=== PATIENT | female | born 1970 | race Caucasian/White ===

== ENCOUNTER 2018-04-16 10:50 | Emergency (ER) | END 2018-04-16 14:41 | disposition home or self-care (01) ==

== ENCOUNTER 2019-02-12 16:21 | Emergency (ER) | payer OTHER ==
[~2019-02-12] VITALS: Ht 160 cm; Wt 78.3 kg
[~2019-02-12 16:21] MED LIST: CIPR500T4 PO; ONDA8TAB14 PO; TRAM50TA2 PO
[2019-02-12 16:26] VITALS: Ht 160 cm; Wt 78.3 kg
[2019-02-12] MEDS ORDERED: SOD CHLORIDE 0.9% 1,000 ML IV STA (17:01)
[2019-02-12] MEDS ORDERED: KETOROLAC 30 MG INJ IV STA (17:01)
[2019-02-12] MEDS ORDERED: ONDANSETRON 4 MG INJ IV STA (17:01)
[2019-02-12] MEDS ORDERED: SITA100T11 PO (18:08)
[2019-02-12] MEDS ORDERED: ATOR40TA68 PO (18:08)
[2019-02-12] MEDS ORDERED: METF100010 PO (18:08)
[2019-02-12] MEDS ORDERED: TAMS-14 PO (22:17)
[2019-02-12] MEDS ORDERED: IBUP-1542 PO (22:17)
[2019-02-12] MEDS ORDERED: ONDA4TAB14 PO (22:17)
[2019-02-12] MEDS ORDERED: HYDR-4011 PO (22:17)
--- NOTE | 2019-02-12 22:27 | ERD ---
ER Documentation Chief Complaint Chief Complaint ABD PAIN X2 DAYS, NAUSEA, VOMITING, FEVER AT HOME HPI Patient is a 49-year-old female with diabetes and kidney stone who presents with abdominal pain. The patient has right-sided abdominal pain which radiates to her right flank. She had vomiting. She had mucus in her bowel movement. She had subjective fever today. The patient has had these symptoms for the past couple days. She went to her primary doctor who sent her to the emergency department. Upon review of old medical records the patient one previous visit to the ER in 2018. ROS All systems reviewed and are negative except as per history of present illness. Medications Home Meds Active Scripts Ondansetron (Ondansetron Odt) 4 Mg Tab.rapdis, 4 MG PO Q6H PRN for NAUSEA AND/OR VOMITING, #10 TAB Prov:JULIA PACHECO MD 02/12/19 Tamsulosin Hcl* (Flomax*) 0.4 Mg Cap.er.24h, 0.4 MG PO QPM, #30 CAP Prov:JULIA PACHECO MD 02/12/19 Hydrocodone/Acetaminophen ([place] 5-325 Tablet) 1 Each Tablet, 1 TAB PO Q6H PRN for PAIN, #7 TAB Prov:JULIA PACHECO MD 02/12/19 Ibuprofen* (Motrin*) 600 Mg Tab, 600 MG PO Q6H PRN for PAIN AND OR ELEVATED TEMP, #30 TAB Prov:JULIA PACHECO MD 02/12/19 Reported Medications Metformin Hcl* (Metformin Hcl*) 1,000 Mg Tablet, 1000 MG PO WITH BREAKFAST DINNE , #60 TAB 02/12/19 Sitagliptin* (Januvia*) 100 Mg Tablet, 100 MG PO DAILY, #30 TAB 02/12/19 Atorvastatin* (Atorvastatin*) 40 Mg Tablet, 40 MG PO QHS, #30 TAB 02/12/19 Discontinued Scripts Ondansetron (Ondansetron Odt) 8 Mg Tab.rapdis, 8 MG PO Q6H PRN for NAUSEA AND/OR VOMITING, #6 TAB Prov:BAYLEE VELIZ MD 04/16/18 Ciprofloxacin Hcl* (Ciprofloxacin Hcl*) 500 Mg Tablet, 500 MG PO BID for 10 Days, TAB Prov:BAYLEE VELIZ MD 04/16/18 Tramadol HCl (Tramadol HCl) 50 Mg Tablet, 50 MG PO Q4 PRN for PAIN, #20 TAB Prov:BAYLEE VELIZ MD 04/16/18 Allergies Allergies: Coded Allergies: No Known Allergy (Unverified , 02/12/19) PMhx/Soc Positive for diabetes and kidney stone Medical and Surgical Hx: pt denies Surgical Hx History of Surgery: No Anesthesia Reaction: No Hx Neurological Disorder: No Hx Respiratory Disorders: No Hx Cardiac Disorders: No Hx Psychiatric Problems: No Hx Miscellaneous Medical Probl: No Hx Alcohol Use: No Hx Substance Use: No Hx Tobacco Use: No Smoking Status: Never smoker FmHx Family History: diabetes Physical Exam Vitals Vital Signs Date Temp Pulse Resp B/P (MAP) Pulse Ox O2 O2 Flow FiO2 Time Delivery Rate 02/12/19 79 16 118/81 99 Room Air 22:10 (93) 02/12/19 82 16 115/70 99 Room Air 19:50 (85) 02/12/19 98.8 105 17 134/65 98 16:26 (88) Physical Exam Const: Moderate distress secondary to pain Head: Atraumatic Eyes: Normal Conjunctiva ENT: Normal External Ears, Nose and Mouth. Neck: Full range of motion. No meningismus. Resp: Clear to auscultation bilaterally Cardio: Regular rate and rhythm, no murmurs Abd: Soft, right-sided abdominal pain with palpation without rebound or guarding Skin: No petechiae or rashes Back: No midline or flank tenderness Ext: No cyanosis, or edema Neur: Awake and alert Psych: Normal Mood and Affect Result Diagram: 02/12/19 1728 02/12/19 1728 Results 24 hrs Laboratory Tests Test 02/12/19 17:28 02/12/19 19:56 White Blood Count 8.4 10^3/ul Red Blood Count 4.67 10^6/ul Hemoglobin 13.0 g/dl Hematocrit 40.7 % Mean Corpuscular Volume 87.2 fl Mean Corpuscular Hemoglobin 27.8 pg Mean Corpuscular Hemoglobin Concent 31.9 g/dl Red Cell Distribution Width 14.7 % Platelet Count 250 10^3/UL Mean Platelet Volume 9.5 fl Immature Granulocytes % 0.200 % Neutrophils % 71.4 % Lymphocytes % 20.7 % Monocytes % 6.9 % Eosinophils % 0.7 % Basophils % 0.1 % Nucleated Red Blood Cells % 0.0 /100WBC Immature Granulocytes # 0.020 10^3/ul Neutrophils # 6.0 10^3/ul Lymphocytes # 1.7 10^3/ul Monocytes # 0.6 10^3/ul Eosinophils # 0.1 10^3/ul Basophils # 0.0 10^3/ul Nucleated Red Blood Cells # 0.0 10^3/ul Urine Color YELLOW Urine Clarity SLIGHTLY CLOUDY Urine pH 5.0 Urine Specific [place] 1.011 Urine Ketones NEGATIVE mg/dL Urine Nitrite NEGATIVE mg/dL Urine Bilirubin NEGATIVE mg/dL Urine Urobilinogen NEGATIVE mg/dL Urine Leukocyte Esterase 1+ Hollie/ul Urine Microscopic RBC 37 /HPF Urine Microscopic WBC 6 /HPF Urine Squamous Epithelial Cells FEW /HPF Urine Bacteria FEW /HPF Urine Hemoglobin 3+ mg/dL Urine Glucose NEGATIVE mg/dL Urine Total Protein NEGATIVE mg/dl Sodium Level 143 mmol/L Potassium Level 3.8 mmol/L Chloride Level 107 mmol/L Carbon Dioxide Level 24 mmol/L Anion Gap 12 Blood Urea Nitrogen 17 mg/dl Creatinine 0.71 mg/dl Est Glomerular Filtrat Rate mL/min > 60 mL/min Glucose Level 98 mg/dl Calcium Level 9.7 mg/dl Total Bilirubin 0.5 mg/dl Direct Bilirubin 0.00 mg/dl Indirect Bilirubin 0.5 mg/dl Aspartate Amino Transf (AST/SGOT) 26 IU/L Alanine Aminotransferase (ALT/SGPT) 41 IU/L Alkaline Phosphatase 74 IU/L Total Protein 8.1 g/dl Albumin 4.5 g/dl Globulin 3.60 g/dl Albumin/Globulin Ratio 1.25 Lipase 139 U/L POC Beta HCG, Qualitative NEGATIVE Current Medications Medications Dose Sig/Bryan Start Time Status Last (Trade) Ordered Route PRN Stop Time Admin Dose Reason Admin Sodium 1,000 ml @ Q1H STAT 02/12/19 DC 02/12/19 Chloride 1,000 mls/hr IV 17:01 17:49 02/12/19 18:00 Ondansetron 4 mg ONCE STAT 02/12/19 DC 02/12/19 HCl (Zofran IV 17:01 17:48 Inj) 02/12/19 17:03 Ketorolac 30 mg ONCE STAT 02/12/19 DC 02/12/19 Tromethamine IV 17:01 17:48 (Toradol) 02/12/19 17:03 Procedures/MDM CT abdomen pelvis shows 4 mm kidney stone per radiology. Patient is a 49-year-old female presents with right-sided abdominal pain and flank pain. She was found to have a 4 mm kidney stone but there are no signs of infection at this time. She is otherwise well-appearing and feels better. She will be discharged will need to follow-up with Dr. Hernandez from urology or the urologist of her choice for follow-up within 24 to 48 hours. She can return for any worsening symptoms. I doubt appendicitis, cholecystitis, pancreatitis, or bowel obstruction. Departure Diagnosis: Primary Impression: Kidney stone Additional Impression: Abdominal pain Abdominal location: unspecified location Qualified Codes: R10.9 - Unspecified abdominal pain Condition: Fair Patient Instructions: Kidney Stone W/ Colic Referrals: NIKOLAS HERNANDEZ MD Additional Instructions: Specialist:Usted tiene jason condicin mdica que requiere que marylin a un especialista dentro de los prximos 1-2 bender.POR FAVOR,CON GARCIA SEGUIMIENTO DE PRIMARIA PHSICIAN refferal. SI USTED NO TIENE UN MDICO GENERAL Y / O USTED NO PUEDE PAGAR melissa a un mdico,los siguientes santana RECURSOS sido suministrado a us morgan. ES GARCIA RESPONSABILIDAD PARA SER VISTOS POR EL ESPECIALISTA: JULIA PACHECO MD Feb 12, 2019 22:27
[2019-02-12 22:45] VITALS: BP 118/81; PULSE 84; RESP 16
== END 2019-02-12 22:55 | disposition home or self-care (01) ==
LOC: E/R 16:21
DX: N20.0 Calculus of kidney (principal); E11.9 Type 2 diabetes mellitus without complications; Z79.84 Long term (current) use of oral hypoglycemic drugs
CPT/HCPCS: 74176; 80053; 81001; 81025; 83690; 85025; J1885; J2405; J7030; 36415; 96361; 96374; 96375

== ENCOUNTER 2019-05-28 15:05 | Emergency (ER) | payer OTHER ==
[~2019-05-28] VITALS: Ht 160 cm; Wt 78.8 kg
[~2019-05-28 15:05] MED LIST changes: +APIX5TAB PO; +ATOR40TA68 PO; -CIPR500T4 PO; +HYDR-4011 PO; +IBUP-1542 PO; +METF100010 PO; +NAPR-985 PO; +ONDA4TAB14 PO; -ONDA8TAB14 PO; +SITA100T11 PO; +TAMS-14 PO; -TRAM50TA2 PO
[2019-05-28 15:07] VITALS: Ht 160 cm; Wt 78.8 kg
[2019-05-28 19:45] VITALS: BP 110/77; PULSE 98; RESP 20
== END 2019-05-28 19:50 | disposition home or self-care (01) ==
LOC: FTE 15:05
DX: I82.453 Acute embolism and thrombosis of peroneal vein, bilateral (principal); E11.9 Type 2 diabetes mellitus without complications; Z79.84 Long term (current) use of oral hypoglycemic drugs
CPT/HCPCS: 93971

== ENCOUNTER 2019-06-01 19:23 | Emergency (ER) | payer OTHER ==
[~2019-06-01] VITALS: Ht 160 cm; Wt 78.0 kg
[2019-06-01 19:26] VITALS: Ht 160 cm; Wt 78.0 kg
[2019-06-01] MEDS ORDERED: KETOROLAC 30 MG INJ IV STA (22:14)
[2019-06-01] MEDS ORDERED: IOHEXOL 100 ML ONE (22:17)
[2019-06-01] MEDS ORDERED: SOD CHLORIDE 0.9% 100 ML ONE (22:17)
[2019-06-01] MEDS ORDERED: ENOXAPARIN 80 MG/0.8 ML SYG SC SCH (23:00)
[2019-06-01 23:25] VITALS: BP 127/71; PULSE 105; RESP 16
== END 2019-06-01 23:27 | disposition home or self-care (01) ==
LOC: E/R 19:23
DX: I26.99 Other pulmonary embolism without acute cor pulmonale (principal); R91.8 Other nonspecific abnormal finding of lung field; I82.453 Acute embolism and thrombosis of peroneal vein, bilateral; Z79.01 Long term (current) use of anticoagulants; Z79.84 Long term (current) use of oral hypoglycemic drugs
CPT/HCPCS: 36415; 71275; 80048; 81025; 84484; 85025; 85610; 85730; 93005; 93970; 96372; 96374; 99285; J1885; Q9967